=== PATIENT | male | born 1960 | race Caucasian/White ===

== ENCOUNTER → 2019-03-29 10:16 | Outpatient (CLI) | payer BC, SELFPAY ==
--- NOTE | 2019-03-29 | DI.NM.S_ITS ---
PROCEDURE: NM RENAL FLOW AND FUNCTION RADIOPHARMACEUTICAL: 10.9 mCi Tc-99m MAG3 IV. INDICATIONS: RENAL MASS TECHNIQUE: The patient was hydrated orally before the examination was begun. After intravenous administration of Tc-99m MAG3, posterior abdominal radionuclide angiogram and sequential (1 minute per frame) renal images were obtained. A time-activity curve for each kidney was generated and analyzed. COMPARISON: None. FINDINGS: Perfusion: There is normal vascular perfusion to both kidneys. Morphology: Kidneys are normal in shape and size. There are no central photopenic regions to suggest dilated collecting systems. The ureters and bladder are visualized, and appear normal in morphology. Function: Both kidneys demonstrate normal cortical tracer uptake, with [id number] activity ranging from 3 to 5 minutes. The right kidney contributes 51.8% of total renal function. The left kidney contributes 48.2% of total renal function. There is normal tracer excretion by both kidneys, and subsequent clearance of activity from both renal collecting systems. IMPRESSION: 1. Normal renal scintigraphy. 2. Right kidney contributes 51.8% and left kidney 48.2% of total renal function. Dictated by: Karen Anderson M.D. on 03/29/2019 at 14:53 Approved by: Karen Anderson M.D. on 03/29/2019 at 14:55
--- NOTE | 2019-03-29 | DI.RAD.S_ITS ---
PROCEDURE: XR CHEST 2V INDICATIONS: Encounter for other preprocedural examination TECHNIQUE: 2 views of the chest were acquired. COMPARISON: None. FINDINGS: Surgical changes and devices: None. Lungs and pleura: Lungs are clear. No pleural effusions or pneumothorax. Mediastinum: Mediastinal contours are normal. Heart size is normal. Bones and chest wall: No suspicious bony abnormalities. Soft tissues appear unremarkable. IMPRESSION: No acute disease. Dictated by: Lenny Dominguez M.D. on 03/29/2019 at 13:33 Approved by: Lenny Dominguez M.D. on 03/29/2019 at 13:34
[2019-03-29 12:25] LABS: Add Manual Diff / Slide Review NO; Basophils Absolute Auto 100 /uL (0-100); Eosinophils Absolute Auto 300 /uL (0-450); Eosinophils Percent Auto 4.1 % (2-4); Hematocrit 44.6 % (41-53); Hemoglobin 15.2 g/dL (13.5-17.5); Lymphocytes Absolute Auto 2300 /uL (1100-4500); Lymphocytes Percent Auto 32.5 % (25-40); Mean Corpuscular HGB Conc 34.1 % (30-36); Mean Corpuscular Hemoglobin 31.5 PG (26-34); Mean Corpuscular Volume 92.2 fL (80-100); Monocytes Absolute Auto 600 /uL (0-900); Monocytes Percent Auto 8.8 % (3-14); Neutrophils Absolute Auto 3800 /uL (1500-7000); Neutrophils Percent Auto 53.6 % (50-75); Platelet Count 232 X10^3/uL (150-400); Red Blood Cell Count 4.84 X10^6/uL (4.5-5.9); Red Cell Distribution Width 13.3 % (11.6-14.8); White Blood Cell Count 7.1 X10^3/uL (4.5-11.0)
[2019-03-29 12:32] LABS: PTT Partial Thromboplastin Tim 32 SECONDS (26.4-36.2)
[2019-03-29 13:01] LABS: Alanine Aminotransferase 55 IU/L (21-72); Albumin 4.5 g/dL (3.5-5.0); Albumin Globulin Ratio 1.6 (1.0-2.8); Alkaline Phosphatase 59 U/L (38-126); Aspartate Aminotransferase 32 IU/L (17-59); BUN Creatinine Ratio 18.9 (6-22); Bilirubin Total 0.6 mg/dL (0.2-1.3); Blood Urea Nitrogen 17 mg/dL (9-20); Carbon Dioxide 31 mmol/L (22-32); Chloride 97 mmol/L (98-107); Estimated Glomerular Filt Rate > 60.0 mL/min (>60); Globulin 2.9 g/dL (1.7-4.1); Glucose 124 mg/dL (80-110); HEMOLYSIS < 15 (0-50); Potassium 4.4 mmol/L (3.4-5.1); Sodium 140 mmol/L (137-145); Total Protein 7.4 g/dL (6.3-8.2)
== END ==
PROVIDERS: PCP Internal Medicine; Visit Provider Urology
DX: Z01.818 Encounter for other preprocedural examination (principal); N28.89 Other specified disorders of kidney and ureter
CPT/HCPCS: 36415; 71046; 78708; 80053; 85025; 85610; 85730; 93005; 93010; A9562

== ENCOUNTER → 2019-05-02 13:25 | Outpatient (CLI) | payer BC, SELFPAY ==
--- NOTE | 2019-05-02 | DI.ECHO.S_ITS ---
[facility]---------+ [facility] +---------+ : : [address] : : : : [id number] : : : : Phone: [phone]+ Echocardiogram Report + + :Name: OSWALDO NUNEZ Study Date: 05/02/2019 Height: 75 in : :[facility] Weight: 250 lb : : Gender: Male BSA: 2.4 m2 : :: 1960 Age: 59 yrs BP: 124/78 mmHg: :Reason For Study: Conduction Disorder, RBBB : : Performed By: Sun Gonzales : :Referring: LEENA GENTILE : + + Interpretation Summary The left ventricle is normal in size, wall thickness, and systolic function without any focal wall motion abnormalities. The right ventricle is normal in size and function. Pulmonary artery pressures cannot be estimated because of the lack of a measurable TR jet velocity but the IVC suggests a CVP of around 3 mmHg. Normal atria size. No hemodynamically significant valvular abnormalities. No prior echo for comparison. Procedure: A two-dimensional transthoracic echocardiogram with color flow and Doppler was performed. The study quality was technically adequate. There is no prior echocardiogram noted for this patient. The patient had a bundle branch block rhythm during the exam. Left Ventricle: The left ventricle is normal in size, wall thickness, and systolic function without any focal wall motion abnormalities. The ejection fraction is estimated to be 60-65%. Diastolic function could not be accurately assessed due to unobtainable data. Right Ventricle: The right ventricle is normal in size and function. Atria: The left atrial size is normal. Right atrial size is normal. There is no Doppler evidence for an interatrial shunt. Mitral Valve: The mitral valve is normal in structure and function. There is no mitral regurgitation noted. Aortic Valve: The aortic valve opens well. The aortic valve is trileaflet. There is no aortic valve stenosis. No aortic regurgitation is present. Tricuspid Valve: The tricuspid valve is normal in structure and function. No tricuspid regurgitation. Pulmonary artery pressures cannot be estimated because of the lack of a measurable TR jet velocity but the IVC suggests a CVP of around 3 mmHg. Pulmonic Valve: The pulmonic valve is not well visualized. There is no pulmonic valvular regurgitation. Great Vessels: The aortic root is normal size. The dimensions of the ascending aorta are normal. The aortic arch is normal in size. The IVC is of normal diameter and collapses greater than 50% with a sniff. This suggests a low right atrial pressure of 3 mm Hg. Pericardium/ Pleura There is no pericardial effusion. There is no pleural effusion. MMode/2D Measurements & Calculations LVIDd: 5.1 cm Ao root diam: 3.7 cm LVIDs: 3.2 cm Aortic Jxn: 2.9 cm FS: 38.3 % asc Aorta Diam: 3.2 cm EPSS: 0.81 cm Ao Arch Diam (Prox Trans): 3.1 cm IVSd: 1.0 cm LVPWd: 1.0 cm LV morse. diameter/BSA (cm/m^2): 2.1 LV sys. diameter/BSA (cm/m^2): 1.3 LA dimension: 4.4 cm RA long axis: 5.2 cm LA A2 area: 23.4 cm2 RA area: 19.0 cm2 LA A4 area: 22.6 cm2 RA vol: 59.3 ml LA length (vol): 5.6 cm RA : 24.6 ml/m2 LA vol: 79.5 ml IVC diam: 1.7 cm LA vol index: 32.9 ml/m2 RVDd major: 5.2 cm RVD1 (basal): 3.4 cm RVD2 (mid): 2.6 cm Doppler Measurements & Calculations Ao V2 max: 136.5 cm/sec MV E max jennifer: 69.4 cm/sec Ao V2 mean: 91.0 cm/sec MV A max jennifer: 101.8 cm/sec Ao max P.5 mmHg MV E/A: 0.68 Ao mean P.8 mmHg MV dec time: 0.22 sec Ao V2 VTI: 26.3 cm MV P1/2t: 64.4 msec PA V2 max: 108.5 cm/sec MV P1/2t max jennifer: 67.2 cm/sec PA V2 mean: 73.9 cm/sec MVA(P1/2t): 3.4 cm2 PA mean P.5 mmHg PA Accel Time: 0.16 sec Electronically signed by: Eduard Piper M.D. on Reading Physician:05/02/2019 05:50 PM
== END ==
PROVIDERS: PCP Internal Medicine; Visit Provider Internal Medicine
DX: I45.10 Unspecified right bundle-branch block (principal)
CPT/HCPCS: 93306

== ENCOUNTER → 2019-05-03 11:36 | Outpatient (CLI) | payer BC, SELFPAY ==
[2019-05-03 13:22] LABS: Alanine Aminotransferase 48 IU/L (21-72); Albumin 4.7 g/dL (3.5-5.0); Albumin Globulin Ratio 1.7 (1.0-2.8); Alkaline Phosphatase 62 U/L (38-126); Aspartate Aminotransferase 31 IU/L (17-59); Bilirubin Total 0.6 mg/dL (0.2-1.3); Bilirubin Unconjugated 0.4 mg/dL (0.0-1.1); Globulin 2.7 g/dL (1.7-4.1); HEMOLYSIS < 15 (0-50); Total Protein 7.4 g/dL (6.3-8.2)
== END ==
PROVIDERS: PCP Internal Medicine; Visit Provider Internal Medicine
DX: R94.5 Abnormal results of liver function studies (principal)
CPT/HCPCS: 36415; 80076

== ENCOUNTER → 2020-05-23 14:41 | Outpatient (CLI) | payer OTHER, SELFPAY ==
[2020-05-23 15:35] LABS: Add Manual Diff / Slide Review NO; Basophils Absolute Auto 100 /uL (0-100); Basophils Percent Auto 0.7 % (0-2); Eosinophils Absolute Auto 300 /uL (0-450); Eosinophils Percent Auto 3.5 % (2-4); Hematocrit 44.5 % (41-53); Hemoglobin 14.8 g/dL (13.5-17.5); Lymphocytes Absolute Auto 2800 /uL (1100-4500); Lymphocytes Percent Auto 38.2 % (25-40); Mean Corpuscular HGB Conc 33.3 % (30-36); Mean Corpuscular Volume 92.8 fL (80-100); Monocytes Absolute Auto 600 /uL (0-900); Monocytes Percent Auto 7.8 % (3-14); Neutrophils Absolute Auto 3600 /uL (1500-7000); Neutrophils Percent Auto 49.8 % (50-75); Platelet Count 228 X10^3/uL (150-400); Red Blood Cell Count 4.79 X10^6/uL (4.5-5.9); Red Cell Distribution Width 13.3 % (11.6-14.8); White Blood Cell Count 7.3 X10^3/uL (4.5-11.0)
[2020-05-23 15:44] LABS: Alanine Aminotransferase 63 IU/L (<50); Albumin 4.6 g/dL (3.5-5.0); Albumin Globulin Ratio 1.4 (1.0-2.8); Alkaline Phosphatase 60 U/L (38-126); Aspartate Aminotransferase 38 IU/L (17-59); BUN Creatinine Ratio 21.3 (6-22); Bilirubin Total 0.5 mg/dL (0.2-1.3); Blood Urea Nitrogen 16 mg/dL (9-20); Calcium 9.1 mg/dL (8.4-10.2); Carbon Dioxide 30 mmol/L (22-32); Chloride 101 mmol/L (98-107); Cholesterol 138 mg/dL (140-199); Estimated Glomerular Filt Rate > 60.0 mL/min (>60); Globulin 3.2 g/dL (1.7-4.1); Glucose 98 mg/dL (80-110); HDL Cholesterol 54 mg/dL (40-60); HEMOLYSIS < 15 (0-50); LDL Cholesterol Calculated 63 mg/dL (<100); Potassium 4.1 mmol/L (3.4-5.1); Sodium 140 mmol/L (137-145); Total Protein 7.8 g/dL (6.3-8.2); Triglycerides 104 mg/dL (35-150)
[2020-05-23 16:09] LABS: Prostate Specific Antigen 0.542 ng/mL (0.10-4.00)
[2020-05-23 16:20] LABS: TSH w/ Reflex to FT4 2.31 uIU/mL (0.47-4.68)
== END ==
PROVIDERS: PCP Internal Medicine; Referring Provider Internal Medicine; Visit Provider Internal Medicine
DX: E78.5 Hyperlipidemia, unspecified (principal); Z85.528 Personal history of other malignant neoplasm of kidney; N40.0 Benign prostatic hyperplasia without lower urinary tract symptoms
CPT/HCPCS: 36415; 80053; 80061; 84153; 84443; 85025

== ENCOUNTER → 2022-05-13 12:24 | Outpatient (CLI) | payer OTHER, SELFPAY ==
--- NOTE | 2022-05-13 | DI.RAD.S_ITS ---
PROCEDURE: XR CHEST 2V INDICATIONS: [facility] TECHNIQUE: 2 views of the chest were acquired. COMPARISON: [facility], CR, XR CHEST 2V, 03/29/2019, 10:24. FINDINGS: Surgical changes and devices: None. Lungs and pleura: Lungs are clear. No pleural effusions or pneumothorax. Mediastinum: Mediastinal contours are normal. Heart size is normal. Bones and chest wall: No suspicious bony abnormalities. Soft tissues appear unremarkable. IMPRESSION: No acute cardiopulmonary process demonstrated radiographically. Dictated by: Cyrus Alves M.D. on 05/14/2022 at 8:16 Approved by: Cyrus Alves M.D. on 05/14/2022 at 8:16
[2022-05-13 14:40] LABS: Alanine Aminotransferase 64 IU/L (<50); Albumin 4.6 g/dL (3.5-5.0); Albumin Globulin Ratio 1.4 (1.0-2.8); Alkaline Phosphatase 57 U/L (38-126); Aspartate Aminotransferase 40 IU/L (17-59); BUN Creatinine Ratio 16.5 (6-22); Bilirubin Total 0.6 mg/dL (0.2-1.3); Blood Urea Nitrogen 13 mg/dL (9-20); Calcium 9.5 mg/dL (8.4-10.2); Carbon Dioxide 30 mmol/L (22-32); Chloride 98 mmol/L (98-107); Estimated Glomerular Filt Rate > 60 mL/min (>60); Globulin 3.2 g/dL (1.7-4.1); Glucose 102 mg/dL (80-110); Potassium 4.2 mmol/L (3.4-5.1); Sodium 139 mmol/L (137-145); Total Protein 7.8 g/dL (6.3-8.2)
--- NOTE | 2022-05-13 14:51 | DI.CT.S_ITS ---
PROCEDURE: CT ABDOMEN RENAL PROTOCOL INDICATIONS: RENAL CELL CARCINOMA OF LEFT KIDNEY TECHNIQUE: Optional 5 mm thick noncontrast images acquired from the diaphragm to the iliac crests. After the administration of intravenous contrast, 5 mm thick images again acquired from the diaphragm to the iliac crests in the arterial and urographic phases. 5 mm thick coronal and sagittal reformats were then acquired. For radiation dose reduction, the following was used: automated exposure control, adjustment of mA and/or kV according to patient size. COMPARISON: None. FINDINGS: Image quality: Excellent Lower chest: Scattered scarring and atelectasis. Solid organs: The liver is unremarkable. Gallbladder, biliary tree, pancreas, spleen are unremarkable. 12 millimeter left adrenal nodule. This is indeterminate using this CT protocol. Right kidney is unremarkable. No hydronephrosis or calculi. Postsurgical changes of the left kidney upper pole without suspicious measurable enhancing soft tissue. There is no hydronephrosis. No intrarenal calculi. Subcentimeter lesions are too small to characterize. Vessels and lymph nodes: No abdominal aortic aneurysm. The main portal vein is patent. No pathologic adenopathy. No thrombus in the left renal vein. Bowel and peritoneum: No bowel obstruction or pathologic ascites. Body wall: Unremarkable Bones: Scattered degenerative changes without acute or suspicious osseous finding. IMPRESSION: No evidence of abdominal metastatic disease, lymphadenopathy or local recurrence in the left kidney surgical site. Small amount of suspected scar tissue is present. Other findings as above. 12 millimeter left adrenal nodule is present, most commonly an adenoma. Attention on follow-up imaging. If definitive evaluation is desired, consider adrenal protocol CT or MRI. At the time of dictation, no priors are available for comparison. Dictated by: Guy Martino M.D. on 05/21/2022 at 14:26 Approved by: Guy Martino M.D. on 05/21/2022 at 14:31
== END ==
PROVIDERS: PCP Internal Medicine; Referring Provider Physician Assistant Medical; Visit Provider Physician Assistant Medical
DX: C64.2 Malignant neoplasm of left kidney, except renal pelvis (principal)
CPT/HCPCS: 36415; 71046; 74170; 80053

== ENCOUNTER → 2022-07-02 12:31 | Outpatient (CLI) | payer OTHER, SELFPAY ==
[2022-07-02 12:52] LABS: Hematocrit 43.4 % (41-53); Mean Corpuscular HGB Conc 34.6 % (30-36); Mean Corpuscular Hemoglobin 31.4 PG (26-34); Mean Corpuscular Volume 90.8 fL (80-100); Platelet Count 227 X10^3/uL (150-400); Red Blood Cell Count 4.78 X10^6/uL (4.5-5.9); Red Cell Distribution Width 13.6 % (11.6-14.8); White Blood Cell Count 6.5 X10^3/uL (4.5-11.0)
[2022-07-02 14:01] LABS: Alanine Aminotransferase 61 IU/L (<50); Albumin 4.6 g/dL (3.5-5.0); Albumin Globulin Ratio 1.4 (1.0-2.8); Alkaline Phosphatase 50 U/L (38-126); Aspartate Aminotransferase 35 IU/L (17-59); BUN Creatinine Ratio 20.8 (6-22); Bilirubin Total 0.4 mg/dL (0.2-1.3); Blood Urea Nitrogen 15 mg/dL (9-20); Calcium 9.7 mg/dL (8.4-10.2); Carbon Dioxide 31 mmol/L (22-32); Chloride 99 mmol/L (98-107); Cholesterol 162 mg/dL (140-199); Estimated Glomerular Filt Rate > 60 mL/min (>60); Globulin 3.4 g/dL (1.7-4.1); Glucose 120 mg/dL (80-110); HDL Cholesterol 53 mg/dL (40-60); HEMOLYSIS < 15 (0-50); LDL Cholesterol Calculated 83 mg/dL (<100); Potassium 4.1 mmol/L (3.4-5.1); Sodium 139 mmol/L (137-145); Triglycerides 132 mg/dL (35-150)
[2022-07-02 14:53] LABS: TSH w/ Reflex to FT4 2.83 uIU/mL (0.47-4.68)
[2022-07-04 07:17] LABS: PSA Free % 38.3 % (.); PSA, Total 0.6 ng/mL (0.0-4.0)
== END ==
PROVIDERS: PCP Internal Medicine; Referring Provider Internal Medicine; Visit Provider Internal Medicine
DX: E78.2 Mixed hyperlipidemia (principal); I10 Essential (primary) hypertension; N13.8 Other obstructive and reflux uropathy; N40.1 Benign prostatic hyperplasia with lower urinary tract symptoms; Z85.528 Personal history of other malignant neoplasm of kidney; R74.01 Elevation of levels of liver transaminase levels; Z20.9 Contact with and (suspected) exposure to unspecified communicable disease; N40.2 Nodular prostate without lower urinary tract symptoms
CPT/HCPCS: 36415; 80053; 80061; 80074; 84153; 84154; 84443; 85027

== ENCOUNTER → 2023-05-06 15:21 | Outpatient (CLI) | payer OTHER, SELFPAY ==
--- NOTE | 2023-05-06 | DI.RAD.S_ITS ---
PROCEDURE: XR CHEST 2V INDICATIONS: LT RENAL CELL CARCINOMA TECHNIQUE: 2 views of the chest were acquired. COMPARISON: [facility], CR, XR CHEST 2V, 05/13/2022, 15:15. FINDINGS: Surgical changes and devices: None. Lungs and pleura: Lungs are clear. No pleural effusions or pneumothorax. Mediastinum: Mediastinal contours are normal. Heart size is normal. Bones and chest wall: No suspicious bony abnormalities. Soft tissues appear unremarkable. IMPRESSION: No acute cardiopulmonary abnormality is seen. Dictated by: Vlad Gonzalez M.D. on 05/06/2023 at 16:51 Approved by: Vlad Gonzalez M.D. on 05/06/2023 at 16:51
--- NOTE | 2023-05-06 | DI.US.S_ITS ---
PROCEDURE: US RENAL COMPLETE INDICATIONS: PERSONAL HISTORY OF RENAL CARCINOMA. TECHNIQUE: Real-time scanning was performed of the kidneys and bladder, with image documentation. COMPARISON: [facility], CT, CT ABDOMEN RENAL PROTOCOL, 05/13/2022, 14:55. FINDINGS: Kidneys: Kidneys are normal in size. Right kidney measures 14.5 cm long; left kidney measures 12.0 cm long. Right renal cortical thickness is 2.0 cm; left renal cortical thickness is 2.2 cm. Renal cortical echotexture is normal. No hydronephrosis or nephrolithiasis. No suspicious solid mass lesions. Bladder: Pre-void bladder volume is 417 mL. Post-void residual is 68 mL. Pre-void images demonstrate no intraluminal masses or stones. On pre-void images, bilateral ureteral jets are noted with color Doppler interrogation. (Of note, ureteral jets may not be detectable in up to 25% of cases due to insufficient differences in specific gravity between ureteral and bladder urine). Miscellaneous: No free pelvic fluid. IMPRESSION: 1. Normal appearance of the bilateral kidneys. 2. 68 cc of postvoid residual. Dictated by: Isrrael Ayala M.D. on 05/06/2023 at 16:14 Approved by: Isrrael Ayala M.D. on 05/06/2023 at 16:16
== END ==
PROVIDERS: PCP Internal Medicine; Referring Provider Physician Assistant Medical; Visit Provider Physician Assistant Medical
DX: C64.2 Malignant neoplasm of left kidney, except renal pelvis (principal)
CPT/HCPCS: 71046; 76770

== ENCOUNTER → 2023-07-06 15:54 | Outpatient (CLI) | payer OTHER, SELFPAY ==
[2023-07-06 17:33] LABS: Hemoglobin A1C% w Est Avg Glu 5.9 % (4.0-6.0)
[2023-07-06 17:36] LABS: HEMOLYSIS < 15 (0-50)
[2023-07-06 17:42] LABS: Aspartate Aminotransferase 36 IU/L (17-59); BUN Creatinine Ratio 17.8 (6-22); Blood Urea Nitrogen 13 mg/dL (9-20); Calcium 9.7 mg/dL (8.4-10.2); Carbon Dioxide 29 mmol/L (22-32); Chloride 99 mmol/L (98-107); Cholesterol 134 mg/dL (140-199); Estimated Glomerular Filt Rate > 60 mL/min (>60); Glucose 97 mg/dL (80-110); HDL Cholesterol 50 mg/dL (40-60); LDL Cholesterol Calculated 69 mg/dL (<100); Potassium 3.9 mmol/L (3.4-5.1); Sodium 139 mmol/L (137-145); Triglycerides 76 mg/dL (35-150)
[2023-07-06 21:24] LABS: Prostate Specific Antigen Scrn 0.787 ng/mL (0.1-4.0)
== END ==
PROVIDERS: PCP Internal Medicine; Referring Provider Internal Medicine; Visit Provider Internal Medicine
DX: Z12.5 Encounter for screening for malignant neoplasm of prostate (principal); E78.2 Mixed hyperlipidemia; I10 Essential (primary) hypertension; N40.2 Nodular prostate without lower urinary tract symptoms
CPT/HCPCS: 36415; 80048; 80061; 83036; 84450; G0103

== ENCOUNTER → 2024-05-17 11:50 | Outpatient (CLI) | payer MEDICARE, OTHER, SELFPAY ==
--- NOTE | 2024-05-17 | DI.CT.S_ITS ---
PROCEDURE: CT ABDOMEN W CON INDICATIONS: RENAL CELL CARCINOMA LEFT KIDNEY/LAB TECHNIQUE: After the administration of intravenous contrast, 5 mm thick sections acquired from the diaphragms to the iliac crests. 5 mm thick coronal and sagittal reformats were acquired. For radiation dose reduction, the following was used: automated exposure control, adjustment of mA and/or kV according to patient size. COMPARISON: [facility], CT, CT ABDOMEN RENAL PROTOCOL, 05/13/2022, 14:55. FINDINGS: Image quality: Diagnostic. Lower Chest: No significant findings. ABDOMEN: Liver: No solid mass. Gallbladder: No radiopaque gallstones or wall thickening. Biliary ducts: No biliary dilation. Pancreas: No ductal dilation. Spleen: Size is within normal limits. Adrenal Glands: No adrenal nodules. Stable left adrenal nodularity. Kidneys and Ureters: No hydronephrosis. No solid mass. No complex renal cystic lesion which requires follow up. Partial left nephrectomy on the superior pole of the left kidney. Similar soft tissue attenuation above the suture lines compared with 2021, favoring a scar (series 3, image 86). Stomach and Bowel: Normal colonic caliber, without significant wall thickening. Colonic diverticulosis without evidence of diverticulitis. Peritoneum: No abnormal intraperitoneal fluid. No free air. Ventral Wall: No hernia. Abdominal Nodes: No retroperitoneal or mesenteric adenopathy by size criteria. Vessels: Aorta and inferior vena cava are normal in size. Bones: No aggressive osseous abnormality. IMPRESSION: Prior surgical changes of a partial left nephrectomy. No evidence of local recurrence. Dictated by: Nahum Mariee M.D. on 05/17/2024 at 14:25 Approved by: Nahum Mariee M.D. on 05/17/2024 at 14:27
--- NOTE | 2024-05-17 | DI.RAD.S_ITS ---
PROCEDURE: XR CHEST 2V INDICATIONS: RENAL CELL CARCINOMA OF LEFT KIDNEY TECHNIQUE: 2 views of the chest were acquired. COMPARISON: [facility], CT, CT ABDOMEN W CON, 05/17/2024, 12:39. [facility], CR, XR CHEST 2V, 05/06/2023, 16:01. [facility], CR, XR CHEST 2V, 05/13/2022, 15:15. FINDINGS: Surgical changes and devices: None. Lungs and pleura: Lungs are clear. No pleural effusions or pneumothorax. Mediastinum: Mediastinal contours are normal. Heart size is normal. Bones and chest wall: No suspicious bony abnormalities. Soft tissues appear unremarkable. IMPRESSION: No acute cardiopulmonary abnormality is seen. No obvious pulmonary mass. Dictated by: Eamno Harris M.D. on 05/17/2024 at 13:43 Approved by: Eamon Harris M.D. on 05/17/2024 at 13:44
[2024-05-17 12:20] LABS: Estimated Glomerular Filt Rate > 60 mL/min (>60)
== END ==
PROVIDERS: Radiology Diagnostic Radiology; PCP Internal Medicine; Referring Provider Physician Assistant Medical; Visit Provider Physician Assistant Medical
DX: C64.2 Malignant neoplasm of left kidney, except renal pelvis (principal); K57.90 Diverticulosis of intestine, part unspecified, without perforation or abscess without bleeding
CPT/HCPCS: 36415; 71046; 74160; 82565; Q9967

== ENCOUNTER → 2024-06-30 14:35 | Outpatient (CLI) | payer MEDICARE, OTHER, SELFPAY ==
[2024-06-30 15:29] LABS: Alanine Aminotransferase 43 IU/L (<50); Albumin 4.8 g/dL (3.5-5.0); Albumin Globulin Ratio 1.8 (1.0-2.8); Alkaline Phosphatase 49 U/L (38-126); Aspartate Aminotransferase 32 IU/L (17-59); Bilirubin Total 0.4 mg/dL (0.2-1.3); Blood Urea Nitrogen 18 mg/dL (9-20); Carbon Dioxide 29 mmol/L (22-32); Chloride 101 mmol/L (98-107); Cholesterol 145 mg/dL (140-199); Estimated Glomerular Filt Rate > 60 mL/min (>60); Globulin 2.7 g/dL (1.7-4.1); Glucose 106 mg/dL (80-110); HDL Cholesterol 61 mg/dL (40-60); HEMOLYSIS < 15 (0-50); LDL Cholesterol Calculated 63 mg/dL (<100); Potassium 4.3 mmol/L (3.4-5.1); Sodium 139 mmol/L (137-145); Total Protein 7.5 g/dL (6.3-8.2); Triglycerides 106 mg/dL (35-150)
[2024-06-30 16:00] LABS: Prostate Specific Antigen 0.754 ng/mL (0.10-4.00)
[2024-06-30 18:12] LABS: Hepatitis B Surface Antigen NEGATIVE s/c (NEGATIVE)
[2024-06-30 18:27] LABS: Hep C Virus Ab w/Reflex Quant NEGATIVE s/c (NEGATIVE)
[2024-07-01 05:37] LABS: Hepatitis B Surf Ab Qualitativ Reactive (.)
== END ==
PROVIDERS: PCP Internal Medicine; Referring Provider Internal Medicine; Visit Provider Internal Medicine
DX: R74.01 Elevation of levels of liver transaminase levels (principal); N40.1 Benign prostatic hyperplasia with lower urinary tract symptoms; N13.8 Other obstructive and reflux uropathy; E78.2 Mixed hyperlipidemia
CPT/HCPCS: 36415; 80053; 80061; 84153; 86706; 86803; 87340

== ENCOUNTER → 2025-05-03 13:41 | Outpatient (CLI) | payer MEDICARE, OTHER, SELFPAY ==
--- NOTE | 2025-05-03 13:44 | DI.RAD.S_ITS ---
PROCEDURE: XR CHEST 2V INDICATIONS: renal cell cancer followup TECHNIQUE: 2 views of the chest were acquired. COMPARISON: [facility], CR, XR CHEST 2V, 05/17/2024, 12:47. [facility], CR, XR CHEST 2V, 05/06/2023, 16:01. FINDINGS: Surgical changes and devices: None. Lungs and pleura: Lungs are clear. No pleural effusions or pneumothorax. Mediastinum: Mediastinal contours are normal. Heart size is normal. Bones and chest wall: No suspicious bony abnormalities. Soft tissues appear unremarkable. IMPRESSION: No acute cardiopulmonary abnormality is seen. No large pulmonary mass is seen radiographically. CT could be performed if there is concern for small pulmonary metastases. Approved by: Yonatan Cordon M.D. on 05/03/2025 at 14:57
--- NOTE | 2025-05-03 13:44 | DI.US.S_ITS ---
PROCEDURE: US RENAL COMPLETE INDICATIONS: LT RCC 2018; PARTIAL NEPHRECTOMY F/U TECHNIQUE: Real-time scanning was performed of the kidneys and bladder, with image documentation. Twenty-three images. COMPARISON: [facility], , RENAL COMPLETE, 05/06/2023, 15:40. FINDINGS: Kidneys: Kidneys are normal in size. Right kidney measures 14.5 cm long; left kidney measures 12.1 cm long. Renal cortical echotexture is mildly increased bilaterally commonly medical renal disease. No hydronephrosis or nephrolithiasis. No suspicious solid mass lesions. Bladder: Pre-void bladder volume is 380 mL. Post-void residual is 88 mL. Pre- void images demonstrate no intraluminal masses or stones. On pre-void images, bilateral ureteral jets are noted with color Doppler interrogation. Miscellaneous: No free pelvic fluid. IMPRESSION: No hydronephrosis. Mild increased renal cortical echogenicity bilaterally commonly medical renal disease. No ultrasound evidence of renal mass. If symptoms persist or worsen, or there is high clinical suspicion of renal/ureteral abnormality, CT or MRI could be performed. Dictated by: Nilson Bosch M.D. on 05/03/2025 at 21:21 Approved by: Nilson Bosch M.D. on 05/03/2025 at 21:24
== END ==
PROVIDERS: PCP Internal Medicine; Referring Provider Internal Medicine; Visit Provider Internal Medicine
DX: Z85.528 Personal history of other malignant neoplasm of kidney (principal)
CPT/HCPCS: 71046; 76770

== ENCOUNTER → 2025-07-05 15:16 | Outpatient (CLI) | payer MEDICARE, OTHER, SELFPAY ==
[2025-07-05 15:43] LABS: Hemoglobin A1C% w Est Avg Glu 5.7 % (4.0-6.0)
[2025-07-05 15:54] LABS: Blood Urea Nitrogen 15 mg/dL (9-20); Calcium 10.1 mg/dL (8.4-10.2); Carbon Dioxide 30 mmol/L (22-32); Chloride 101 mmol/L (98-107); Cholesterol 102 mg/dL (140-199); Estimated Glomerular Filt Rate > 60 mL/min (>60); Glucose 102 mg/dL (70-99); HDL Cholesterol 56 mg/dL (40-60); HEMOLYSIS < 15 (0-50); Potassium 4.2 mmol/L (3.4-5.1); Sodium 142 mmol/L (137-145); Triglycerides 58 mg/dL (35-150)
[2025-07-05 16:24] LABS: Prostate Specific Antigen 1.14 ng/mL (0.10-4.00); TSH w/ Reflex to FT4 2.17 uIU/mL (0.47-4.68)
== END ==
PROVIDERS: PCP Internal Medicine; Referring Provider Internal Medicine; Visit Provider Internal Medicine
DX: I10 Essential (primary) hypertension (principal); R73.01 Impaired fasting glucose; N40.1 Benign prostatic hyperplasia with lower urinary tract symptoms; N13.8 Other obstructive and reflux uropathy; E78.2 Mixed hyperlipidemia
CPT/HCPCS: 36415; 80048; 80061; 83036; 84153; 84443; 84450